=== PATIENT | male | born 1955 | race Caucasian/White ===

== ENCOUNTER → 2016-04-03 | Outpatient (CLI) | payer BC ==
[2016-04-03 09:35] LABS: LDL CHOLESTEROL,CALCULATED 65.6 mg/dL
== END ==
LOC: LAB 09:05
PROVIDERS: ATTEND Family Medicine
DX: E78.5 Hyperlipidemia, unspecified (principal); I10 Essential (primary) hypertension
CPT/HCPCS: 36415; 80061

== ENCOUNTER 2016-05-17 12:57 | Emergency (ER) | payer BC ==
[2016-05-17 13:31] VITALS: RESP 14; TEMP 97
--- NOTE | 2016-05-17 20:26 | PDOC ---
Back Pain / Injury HPI - General Chief Complaint: Neck / Back Complaint Stated Complaint: BACK PAIN Date Seen by Provider: 05/17/16 Time Seen by Provider: 12:57 Source: Patient Exam Limitations: POSITIVE: No limitations Nurse's Notes Reviewed & Considered: Yes - History of Present Illness Initial Comments: The patient is a 61-year-old male. Patient states he was moving a karate black belt 2 days ago and he felt an abrupt onset of pain in the thoracodorsal area. Patient has a long-standing history of neck and back pain. He's undergone a cervical and lumbar fusion and has been told he has a "herniated thoracic disc" . He states his diagnosis was based on an MRI that he had 2 years ago. He states he does have a history of radiculopathy left leg and he does get lumbar injections by a neurosurgeon every year or so. He presently denies any radicular symptoms. No falls or direct trauma. 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) Severity: Moderate Quality: REPORTS: "Pain", Sharpness Context: REPORTS: Turning (While moving a karate black belt) Location at Time of Onset: REPORTS: Home Modifying Factors: improves with: Movement (Exacerbated by movement) Associated Symptoms: REPORTS: Back pain Similar Symptoms Previously: Yes Recent Care Received: REPORTS: Denies Any Prior Injuries Related to Current Complaint?: No - Patient Home Medications Home Medications: Home Medications Cpap 1 cm NASAL DAILY #1 unit 07/18/12 Epinephrine [Epipen] 0.3 mg IM ONCE ml 10/24/13 Aspirin [Aspir 81] 81 mg PO DAILY tab 09/19/14 Albuterol Sulfate [Proair Hfa] 1 - 2 puff INH Q4-6H PRN #1 inhaler 02/20/15 Nitroglycerin 0.4 mg SL As directed PRN #25 tab 02/20/15 Amlodipine Besylate 1 tab PO DAILY tab 02/24/15 Atenolol 50 mg ORAL QD #90 tab 10/20/15 Citalopram Hydrobromide [Celexa] 40 mg ORAL QD #90 tab 10/20/15 Ezetimibe [Zetia] 10 mg PO DAILY #90 tab 10/20/15 Fluticasone/Salmeterol [Advair 250-50 Diskus] 1 puff INH BID #180 puff 10/20/15 Fosinopril Sodium 20 mg ORAL QD #90 tab 10/20/15 Simvastatin 1 tab PO DAILY #90 tab 10/20/15 Tiotropium Steedman [Spiriva] 1 cap INH QD #90 cap 10/20/15 Rosuvastatin Calcium 40 mg PO QHS tab 12/10/15 Cyclobenzaprine HCl [Flexeril] 10 mg PO TID #20 tab 05/17/16 Tramadol HCl 50 mg PO Q6H PRN #20 tab 05/17/16 - Patient Allergies Allergies/Adverse Reactions: Allergies Allergy/AdvReac Type Severity Reaction Status Date / Time aspirin [Aspirin] Allergy Unknown unknown Verified 05/17/16 13:04 Penicillins Allergy Unknown unknown Verified 05/17/16 13:04 rofecoxib [From Vioxx] Allergy Unknown unknown Verified 05/17/16 13:04 Past Medical History - heen HEENT History: Denies History Cardiovascular History: Hypertension, Previous SD, CAD, Hyperlipidemia, Other ( please comment) Additional Cardiovasular History: ANGIOPLASTY X2, stent x1 Respiratory History: Asthma, COPD, Emphysema, Home CPAP Use Gastrointestinal History: Other (please comment) Additional Gastrointestinal History: Hx of Inguinal Hernia repair x 2 Genitourinary History: Denies History Endocrine History: Denies History Musculoskeletal History: Back Pain, Other (please comment) Prosthesis or Implant: No Additional Musculoskeletal History: Hx of C5-6 fusion and L4-5 fusion; Herniation at L5-S1, C2-C3 Neurological History: CVA Blood Disorders: Denies History Psychiatric History: Anxiety Disorders Male Reproductive History: Denies History Cancer History: Denies History In Past Year Been Physically Harmed or Verbally Threatened: No History of MDRO: No Tobacco Use: Former Smoker Alcohol Use: Rarely Substance Use Type: None Previous Surgical History: Yes Type / Date of Surgery: fusion c5-c6, L4-L5, HERNIA REPAIR, ANGIOPLASTY Anesthesia Reactions: No Malignant Hyperthermia: No Significant Family History: Heart disease, Diabetes, Other (please comment) Additional Family History: MS/ TYPE 2 DIABETES, SD, CVA Past Medical History Reviewed: Reviewed - No Changes ROS - Limitations ROS Limitations: No Limitations Constitution: REPORTS: Denies Symptoms Cardiovascular: REPORTS: Denies Cardiac Symptoms Respiratory: REPORTS: Denies Resp Symptoms Neurological: REPORTS: Denies Neuro Symptoms Gastrointestinal: REPORTS: Denies GI Symptoms Endocrine: REPORTS: Denies Symptoms Musculoskeletal: REPORTS: Back Pain (Lower parathoracic back pain, left greater than right) Genitourinary: REPORTS: Denies Symptoms Eyes: REPORTS: Denies Symptoms ENT: REPORTS: Denies Symptoms Skin: REPORTS: Denies Skin Symptoms Lympathic: REPORTS: Denies Lympathic Symptoms Immunologic: POSITIVE: Denies Symptoms Psychiatric: POSITIVE: Denies Psych Symptoms Back Physical Assessment - General Appearance General Appearance: REPORTS: Alert, Cooperative, No Acute Distress, Other (Obese ) - HEENT HEENT: POSITIVE: Head Inspection Nml, Eyes Inspection Nml, Ears Inspection Nml, Nose Inspection Nml, Oral/Dental Inspect. Nml, Pharynx Inspect. Nml, PERRL, EOMI - Pupil Size Pupil Size: 4 mm: Bilateral - Neck Neck: POSITIVE: Non Tender, Painless ROM, Trachea Midline, Nexus Criteria Negative - Respiratory / CVS Respiratory / CVS: POSITIVE: Chest Non Tender, No Ecchymosis, Breath Sounds Normal, No Respiratory Distress, Heart Sounds Normal, Regular Rate/Rhythm - Abdomen Abdomen: Soft: (All Quadrants), Normal Bowel Sounds: (All Quadrants), Denies Tenderness: (All Quadrants), No Splenomegaly: (All Quadrants), No Hepatomegaly: (All Quadrants), No Guarding: (All Quadrants), No Rebound: (All Quadrants), No Palpable Pulse: (All Quadrants), No Palpabale Mass: (All Quadrants), No Distention: (All Quadrants), No Rigidity: (All Quadrants) - Back Back: REPORTS: No CVA Tenderness, No Vertebral Tenderness, Muscle Spasm (Left lower parathoracic musculature), See Diagram. 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, Motor Normal, Sensation Normal, Mood Appropriate, Affect Appropriate, Reflexes Normal Reflexes: Patellar (R): 2+, Patellar (L): 2+ Images - Complete Complete: 1 - Area of discomfort with some muscle spasm Back Progress - Patient's Progress Pain Medication Addressed: POSITIVE: Yes (Hydrocodone/APAP) School/Work Release Addressed: POSITIVE: Yes (Work excuse for 2 days given) Re-Examine Time: 13:15 Re-Examine Comment: Unchanged Status: POSITIVE: Unchanged - Consult Counseled: POSITIVE: Patient, RE: DX, RE: Need for F/U Patient Care Time - Estimated PCT Patient Care Time (In Minutes): 18 Vital Signs - Recent Vital Signs Vital Signs: Vital Signs (Last 8 hours) Temp Pulse Resp BP Pulse Ox 05/17/16 12:58 97.0 F 80 14 114/64 88 - VS Reviewed Vital Signs Reviewed: Yes Discharge Clinical Impression: Thoracic myofascial strain Discharge Disposition: Discharged to Home Condition: Good Prescriptions / Orders: Cyclobenzaprine HCl [Flexeril] 10 mg PO TID #20 tab Tramadol HCl 50 mg PO Q6H PRN #20 tab PRN Reason: Pain Patient Instructions Given at Discharge: Thoracic Back Strain (ED) Additional Instructions: I believe that you have a strain with some spasm in your upper back. Please take tramadol, one every 6 hours as necessary for pain. Flexeril one every 8 hours. IV given you a work excuse for 48 hours. Rest during that time. Weight reduction would be helpful. Follow-up with your back specialist. Return here anytime if condition worsens. Follow Up With: ANDREW VASQUEZ [Primary Care Provider] - (Instructions as above. Follow-up with your primary care provider or back specialist. Return here anytime if condition worsens.)
== END 2016-05-17 13:30 | disposition home or self-care (01) ==
LOC: ER 12:57 → SUPCPDRO 12:57 → ER 13:30
DX: S29.012A Strain of muscle and tendon of back wall of thorax, initial encounter (principal); X50.9XXA Other and unspecified overexertion or strenuous movements or postures, initial encounter
CPT/HCPCS: 99282

== ENCOUNTER 2016-11-03 08:25 | Day surgery (SDC) | payer BC ==
[2016-11-03] MEDS ORDERED: TRIAMCINOLONE ACETONIDE 40 MG/1 ML IAC ONE (09:00)
[2016-11-03] MEDS ORDERED: BUPivacaine Inj 0.25% PF - 10ml vial EPIDURAL ONE (09:00)
--- NOTE | 2016-11-03 10:19 | GEN.OPNOTE ---
Facet Injection Procedure: Facet Injection with Local Anesthetic and Steriod Procedure Code - Neurosurgery: 64655 : C/T Spine Facet/Med, 1st Level: L5S! Preoperative Diagnosis: Lumbar Spondylosis Postoperative Diagnosis: same -: Consent: Rationale for procedure, nature of procedure, possible risks and benefits were discussed with the patient. Risks including allergic reaction to medications, known effects of steroid medications including transient elevations in blood sugar with aggravation of pre-existing diabetes and remote risk of aseptic necrosis of the hip. Infection or bleeding with potential risk of neurologic injury with weakness, paralysis or were all reviewed with the patient who wished to proceed. Anesthesia, sedation: No intravenous access or sedation was used. Physiologic monitoring of pulse and oxygen saturation was utilized. Procedure: The patient was placed prone on the operating room table, prepped with Chloroprep and sterilely draped. The skin was anesthetized with 1% Buffered Xylocaine. Under fluoroscopic control a 22-gauge needle was advanced L5S1 facet joint on the bilateral. Omnipaque was injected under real-time fluoroscopy demonstrating an facet arthrogram. Following this 1 ml of a mixture of triamcinolone (40mg/ml) and Ropivacaine was injected. AP and lateral images of the final needle placement was obtained. The needle was removed and the patient returned to the post procedure recovery room where they were monitored for any side effects. Pain assessment: Preprocedure pain []/10, post procedure pain []/10. Discharge instructions: Patient was given a pain log to be filled out and returned. A delayed response to the steroids of 2-5 days was discussed.
[2016-11-03 10:36] VITALS: RESP 16
[2016-11-03 10:37] VITALS: TEMP 97.1
== END 2016-11-03 10:17 | disposition home or self-care (01) ==
LOC: SDSC 08:25
PROVIDERS: ATTEND Pain Medicine Interventional Pain Medicine
DX: M47.27 Other spondylosis with radiculopathy, lumbosacral region (principal)
CPT/HCPCS: 64490; 76000; J3301; S0020